=== PATIENT | male | born 1990 | race African-American/Black ===

== ENCOUNTER 2021-09-05 14:49 | Emergency (ER) | payer OTHER ==
[~2021-09-05] VITALS: Ht 170.2 cm; Wt 77.3 kg
[2021-09-05] MEDS ORDERED: IV NORMAL SALINE 1000ML BAG 1,000 ML IV ONE (15:15)
[2021-09-05 15:32] LABS: BASO # 0.1 x10^3/uL (0.0-0.2); BASO % 2 % (0-3); EOS % 0 % (0-3); HEMATOCRIT 41.6 % (39.0-53.0); HEMOGLOBIN 13.8 g/dL (13.0-17.5); LYMPH # 2.3 x10^3/uL (1.0-4.8); LYMPH % 23 % (24-48); MEAN CORPUSCULAR HEMOGLOBIN 27 pg (25-35); MEAN CORPUSCULAR HGB CONC 33 g/dL (31-37); MEAN CORPUSCULAR VOLUME 82 fL (79-100); MONO # 0.6 x10^3/uL (0.0-1.1); MONO % 6 % (0-9); NEUT % 69 % (31-73); PLATELET COUNT 248 x10^3/uL (140-400); RED BLOOD COUNT 5.06 x10^6/uL (4.30-5.70); RED CELL DISTRIBUTION WIDTH 12.8 % (11.5-14.5); WHITE BLOOD COUNT 10.1 x10^3/uL (4.0-11.0)
--- NOTE | 2021-09-05 15:42 | EKG ---
[facility] [address] [place] [address] Test Date: 2021-09-05 Test Time: 15:27:23 Pat Name: TONIE GOFF Department: Room: Gender: M Vendor Manager: : 1990 Requested By: GEOFFREY KEYES Order Number: [id number] Reading MD: Jarvis Hopson Measurements Intervals [place] Rate: 99 P: 66 VA: 150 QRS: 85 QRSD: 90 T: 14 QT: 344 QTc: 447 Interpretive Statements SINUS RHYTHM NORMAL ECG RI6.02 No previous ECG available for comparison Electronically Signed On 09-06-2021 18:08:14 CDT by Jarvis Hopson
[2021-09-05 15:43] LABS: CALCIUM 9.3 mg/dL (8.5-10.1); GFR 104.1; POTASSIUM 3.6 mmol/L (3.5-5.1)
[2021-09-05 15:48] LABS: ALBUMIN 3.8 g/dL (3.4-5.0); ALBUMIN/GLOBULIN RATIO 0.9 (1.0-1.7); TOTAL BILIRUBIN 0.7 mg/dL (0.2-1.0)
[2021-09-05 15:52] LABS: ACETAMIN < 2.0 mcg/ml (10-30)
[2021-09-05 15:53] LABS: SALIC < 2.0 mg/dL (2.8-20.0)
[2021-09-05 15:54] LABS: ETHANOL < 10 mg/dL (0-10)
--- NOTE | 2021-09-05 16:02 | PHYS DOC ---
Past Medical History Past Medical History: Depression, Diabetes-Type II, GERD, Hepatitis (GEOFFREY KEYES APRN) Past Surgical History: No Surgical History (GEOFFREY KEYES APRN) Smoking Status: Former Smoker Alcohol Use: None Drug Use: None (GEOFFREY KEYES APRN) General Adult EDM: Chief Complaint: ACCIDENTAL INGESTION HPI: HPI: Patient is a 31-year-old male who presents today from [facility] with a complaint of drinking simple green cleansing solution. Patient states that he was in "the hole" and they had some simple green cleaning solution there and he said he drank approximately 1 L of this solution, he said this happened approximately 1 hour prior to arrival, he states that he feels that his insides are crawling with bugs and he said he showers on a regular basis and he still feels like there are bugs crawling on him, so he thought that he would drink this cleaning solution to kill the bugs on the inside out. Patient is very scattered and I do have a hard time redirecting him to answer direct questions regarding this incident that happened, he is obsessed with bugs growing in him and him having a bug that live inside of him, his medical records from [facility] states that he has a history of depression, diabetes, GERD and hepatitis C in the past but no other psychiatric illnesses. The guards at the bedside did state that this was a witnessed event. Patient at this time has no complaints except for the possibility of bugs crawling crawling on him. (GEOFFREY KEYES APRN) Review of Systems: Review of Systems: Constitutional: Denies fever or chills. [] Eyes: Denies change in visual acuity. [] HENT: Denies nasal congestion or sore throat. [] Respiratory: Denies cough or shortness of breath. [] Cardiovascular: Denies chest pain or edema. [] GI: Denies abdominal pain, nausea, vomiting, bloody stools or diarrhea. [] : Denies dysuria. [] Musculoskeletal: Denies back pain or joint pain. [] Integument: Denies rash. [] Neurologic: Denies headache, focal weakness or sensory changes. [] Endocrine: Denies polyuria or polydipsia. [] Lymphatic: Denies swollen glands. [] Psychiatric: Denies depression or anxiety. [] (GEOFFREY KEYES LACE PAPER MACHINE OPERATOR) Heart Score: C/O Chest Pain: No Risk Factors: Risk Factors: DM, Current or recent (<one month) smoker, HTN, HLP, family history of CAD, obesity. Risk Scores: Score 0 - 3: 2.5% MACE over next 6 weeks - Discharge Home Score 4 - 6: 20.3% MACE over next 6 weeks - Admit for Clinical Observation Score 7 - 10: 72.7% MACE over next 6 weeks - Early Invasive Strategies (GEOFFREY KEYES APRN) Current Medications: Current Medications Medications (Trade) Dose Ordered Sig/Alonso Start Time Stop Time Status Last Admin Dose Admin Sodium Chloride 1,000 ml @ 999 mls/hr 1X ONCE 09/05/21 15:15 09/05/21 16:15 09/05/21 15:20 999 MLS/HR (GEOFFREY KEYES APRN) Allergies: Allergies: Allergies Coded Allergies Type Severity Reaction Last Updated Verified No Known Drug Allergies 09/05/21 No (GEOFFREY KEYES APRN) Physical Exam: PE: Constitutional: Well developed, well nourished, no acute distress, non-toxic appearance. [] HENT: Normocephalic, atraumatic, bilateral external ears normal, oropharynx moist, no oral exudates, nose normal. [] Eyes: PERRLA, EOMI, conjunctiva normal, no discharge. [] Neck: Normal range of motion, no tenderness, supple, no stridor. [] Cardiovascular:Heart rate regular rhythm, no murmur [] Lungs & Thorax: Bilateral breath sounds clear to auscultation [] Abdomen: Bowel sounds normal, soft, no tenderness, no masses, no pulsatile masses. [] Skin: Warm, dry, no erythema, no rash. [] Back: No tenderness, no CVA tenderness. [] Extremities: No tenderness, no cyanosis, no clubbing, ROM intact, no edema. [] Neurologic: Alert and oriented X 3, normal motor function, normal sensory function, no focal deficits noted. [] Psychologic: Affect normal, judgement normal, mood normal. [] (GEOFFREY KEYES APRN) Current Patient Data: Labs: Laboratory Tests Test 09/05/21 15:18 White Blood Count 10.1 x10^3/uL (4.0-11.0) Red Blood Count 5.06 x10^6/uL (4.30-5.70) Hemoglobin 13.8 g/dL (13.0-17.5) Hematocrit 41.6 % (39.0-53.0) Mean Corpuscular Volume 82 fL (79-100) Mean Corpuscular Hemoglobin 27 pg (25-35) Mean Corpuscular Hemoglobin Concent 33 g/dL (31-37) Red Cell Distribution Width 12.8 % (11.5-14.5) Platelet Count 248 x10^3/uL (140-400) Neutrophils (%) (Auto) 69 % (31-73) Lymphocytes (%) (Auto) 23 % (24-48) L Monocytes (%) (Auto) 6 % (0-9) Eosinophils (%) (Auto) 0 % (0-3) Basophils (%) (Auto) 2 % (0-3) Neutrophils # (Auto) 7.0 x10^3/uL (1.8-7.7) Lymphocytes # (Auto) 2.3 x10^3/uL (1.0-4.8) Monocytes # (Auto) 0.6 x10^3/uL (0.0-1.1) Eosinophils # (Auto) 0.0 x10^3/uL (0.0-0.7) Basophils # (Auto) 0.1 x10^3/uL (0.0-0.2) Sodium Level 135 mmol/L (136-145) L Potassium Level 3.6 mmol/L (3.5-5.1) Chloride Level 98 mmol/L (98-107) Carbon Dioxide Level 30 mmol/L (21-32) Anion Gap 7 (6-14) Blood Urea Nitrogen 15 mg/dL (8-26) Creatinine 1.0 mg/dL (0.7-1.3) Estimated GFR (Cockcroft-Gault) 104.1 BUN/Creatinine Ratio 15 (6-20) Glucose Level 315 mg/dL (70-99) H Calcium Level 9.3 mg/dL (8.5-10.1) Total Bilirubin 0.7 mg/dL (0.2-1.0) Aspartate Amino Transferase (AST) 17 U/L (15-37) Alanine Aminotransferase (ALT) 18 U/L (16-63) Alkaline Phosphatase 86 U/L (46-116) Total Protein 8.0 g/dL (6.4-8.2) Albumin 3.8 g/dL (3.4-5.0) Albumin/Globulin Ratio 0.9 (1.0-1.7) L Lipase 39 U/L (73-393) L Salicylates Level < 2.0 mg/dL (2.8-20.0) L Salicylate Last Dose Date Unknown Salicylate Last Dose Time Unknown Acetaminophen Level < 2.0 mcg/ml (10-30) L Acetaminophen Last Dose Date Unknown Acetaminophen Last Dose Time Unknown Ethyl Alcohol Level < 10 mg/dL (0-10) Laboratory Tests 09/05/21 15:18 Laboratory Tests 09/05/21 15:18 Vital Signs: Vital Signs Date Time Temp Pulse Resp B/P (MAP) Pulse Ox O2 Delivery O2 Flow Rate FiO2 09/05/21 14:55 99.6 114 18 137/77 (97) 100 Room Air 99.6 (GEOFFREY KEYES APRN) EKG: EKG: EKG done at [address] Saunders at 1528 shows sinus rhythm with no ectopy at a rate of 99 with a [place] interval of 150 ms with a QTC of 447 ms no STEMI [] (GEOFFREY KEYES APRN) Radiology/Procedures: Radiology/Procedures: [] (GEOFFREY KEYES APRN) Course & Med Decision Making: Course & Med Decision Making Pertinent Labs and Imaging studies reviewed. (See chart for details) 1531 I spoke to Rakel with the psychiatric assessment team and conferred with her about this patient's case she is agreeable to coming in and talking with the patient to helping determine what the best course of action would be for this patient upon discharge. 1615 psychiatric assessment sales team leader Marion is here at the bedside talking with patient. 1700 recommendations from the psychiatric assessment team is that the [facility] can [facility] when he is cleared by poison control, she feels this is at attention seeking behavior issue and that the patient can be [facility] the [facility]. 1725 contact center representative from the [facility] poison control called back, they were updated on the patient condition they stated the patient is not having any issues then he can be returned to the correctional facility for further monitoring by their staff and the medical department. 1740 spoke with Aly at [facility] in the medical [facility] and gave her report on the patient, did inform her that the only adverse effect the patient may have is an upset stomach. She verbalized understanding of this and is agreeable with the plan of care the patient being followed up at the facility. (GEOFFREY KEYES APRN) Dragon Disclaimer: Dragon Disclaimer: This electronic medical record was generated, in whole or in part, using a voice recognition dictation system. (GEOFFREY KEYES APRN) Departure Departure Impression: Primary Impression: Ingestion of substance Qualified Codes: T65.94XA - Toxic effect of unspecified substance, undetermined, initial encounter Disposition: HOME / SELF CARE / HOMELESS Condition: STABLE Referrals: UNKNOWN PCP NAME (PCP) Patient Instructions: Nontoxic Ingestion Additional Instructions: Continue all medications that you are currently been taking in the medical [facility] at the [facility] Attending Signature Attending Signature I have reviewed the PA/STEEL PLATE CAULKER's note and plan of care. I was available for consultation as needed during the patient's visit in the emergency department. I agree with the clinical impression, plan, and disposition. (ELADIO HARRISON DO) GEOFFREY KEYES APRN Sep 05, 2021 16:02 ELADIO HARRISON DO September 11, 2021 00:52
[2021-09-05 16:58] VITALS: BP 180/94
== END 2021-09-05 17:57 | disposition home or self-care (01) ==
LOC: ER 14:49 → EEVIPCON 14:49 → ER 17:57
DX: T65.94XA Toxic effect of unspecified substance, undetermined, initial encounter (principal); E11.9 Type 2 diabetes mellitus without complications; K21.9 Gastro-esophageal reflux disease without esophagitis; Z87.891 Personal history of nicotine dependence; Y92.89 Other specified places as the place of occurrence of the external cause
CPT/HCPCS: 36415; 80053; 80329; 83690; 85025; 93005; 96360; 99284; G0480; J7030